=== PATIENT | female | born 1955 ===

== ENCOUNTER 2016-11-23 10:31 | Emergency (ER) | payer OTHER ==
[2016-11-23 10:44] VITALS: RESP 18; TEMP 97
--- NOTE | 2016-11-23 10:57 | ED PDOC ---
HPI: Hypertension/Hypotension Time Seen by Provider: 11/23/16 10:57 Chief Complaint (Nursing): High Blood Pressure Chief Complaint (Provider): high BP History Per: Patient Additional Complaint(s): Patient states she measured her blood pressure at home with an arm cuff and it was 178/92. She believes that she has a history of high blood pressure for several years but is not on medication. Patient states once in a while she will take her friend's enalapril. Upon arrival to ER patient denies chest pain, shortness of breath, dyspnea on exertion, headache, dizziness or vision changes. Past Medical History Reviewed: Historical Data, Nursing Documentation, Vital Signs Vital Signs: Last Vital Signs Temp 97 F L 11/23/16 10:41 Pulse 92 H 11/23/16 10:41 Resp 18 11/23/16 10:41 BP 178/92 H 11/23/16 10:41 Pulse Ox 96 11/23/16 10:41 - Medical History PMH: HTN (not on meds) - Surgical History Surgical History: Hernia Repair (hiatal), (x 1) - Family History Family History: States: No Known Family Hx - Social History Current smoker - smoking cessation education provided: No Alcohol: None Drugs: Denies - Home Medications Home Medications: Ambulatory Orders Medication Instructions Recorded MetFORMIN [glucoPHAGE] 500 mg PO BID #20 tab 11/23/16 - Allergies Allergies/Adverse Reactions: Allergies Allergy/AdvReac Type Severity Reaction Status Date / Time No Known Allergies Allergy Verified 11/23/16 10:41 Review of Systems ROS Statement: Except As Marked, All Systems Reviewed And Found Negative Constitutional: Positive for: Other (elevated BP at home). Negative for: Fever Cardiovascular: Negative for: Chest Pain, Palpitations Respiratory: Negative for: Cough Gastrointestinal: Negative for: Nausea, Vomiting Neurological: Negative for: Headache, Dizziness Physical Exam - Reviewed Nursing Documentation Reviewed: Yes Vital Signs Reviewed: Yes - Physical Exam Appears: Positive for: Well Skin: Negative for: Rash Eye Exam: Positive for: Normal appearance, EOMI, PERRL Cardiovascular/Chest: Positive for: Regular Rate, Rhythm Respiratory: Positive for: Normal Breath Sounds Extremity: Negative for: Pedal Edema Neurologic/Psych: Positive for: Alert, Oriented - Laboratory Results Result Diagrams: 11/23/16 11:18 11/23/16 11:18 - ECG Interpretation Of ECG: Normal sinus rhythm 69 bpm, no acute findings, reviewed by PA and ED attending O2 Sat by Pulse Oximetry: 96 Pulse Ox Interpretation: Normal Medical Decision Making Medical Decision Makin61 year old with high blood pressure Plan: CBC CMP Trop EKG BP in ED 146/80 1:50 pm: repeat BP is now 151/84 Patient aware of all diagnostic testing results, all questions answered. Hyperglycemia noted, rx metformin given. BP is stable. Patient was referred to clinic for follow up. Copies of labs provided. Disposition - Clinical Impression Clinical Impression: Hyperglycemia, Borderline high blood pressure - Patient ED Disposition Is Patient to be Admitted: No Counseled Patient/Family Regarding: Studies Performed, Diagnosis, Need For Followup, Rx Given - Disposition Referrals: [facility] [Outside] Disposition: Routine/Home Disposition Time: 13:56 Condition: STABLE Additional Instructions: Take rx meds as directed. Follow up with clinic as soon as possible. Prescriptions: MetFORMIN [glucoPHAGE] 500 mg PO BID #20 tab Instructions: Diabetic Hyperglycemia (ED), Hypertension (ED) Forms: [employer] (Namibian) Results - Lab Results Lab Results: 11/23/16 11/23/16 11:18 11:18 WBC 9.1 RBC 5.24 H Hgb 13.8 Hct 41.5 MCV 79.2 L MCH 26.4 L MCHC 33.3 RDW 13.4 Plt Count 211 MPV 10.7 Neut % (Auto) 57.9 Lymph % (Auto) 34.4 [place] % (Auto) 5.8 Eos % (Auto) 1.3 Baso % (Auto) 0.6 Neut # 5.3 Lymph # 3.1 [place] # 0.5 Eos # 0.1 Baso # 0.1 Sodium 141 Potassium 4.1 Chloride 103 Carbon Dioxide 21 L Anion Gap 21 H BUN 12 Creatinine 0.6 L Est GFR ( Amer) > 60 Est GFR (Non-Af Amer) > 60 Random Glucose 265 H Calcium 9.8 Total Bilirubin 0.7 AST 102 H ALT 83 H Alkaline Phosphatase 83 Troponin I < 0.0120 Total Protein 7.9 Albumin 4.4 Globulin 3.5 Albumin/Globulin Ratio 1.3
[2016-11-23 11:41] LABS: BASO # 0.1 K/uL (0.0-0.2); BASO % 0.6 % (0.0-2.0); EOS # 0.1 K/uL (0.0-0.7); EOS % 1.3 % (0.0-4.0); HEMATOCRIT 41.5 % (34.0-47.0); LYMPH # 3.1 K/uL (1.0-4.3); LYMPH % 34.4 % (20.0-40.0); MEAN CELL VOLUME 79.2 fl (81.0-99.0); MEAN CORPUSCULAR HEMOGLOBIN 26.4 pg (27.0-31.0); MEAN CORPUSCULAR HGB CONC 33.3 g/dL (33.0-37.0); MEAN PLATELET VOLUME 10.7 fl (7.2-11.7); MONO # 0.5 K/uL (0.0-0.8); MONO % 5.8 % (0.0-10.0); NEUT # 5.3 K/uL (1.8-7.0); NEUT % 57.9 % (50.0-75.0); RED CELL DISTRIBUTION WIDTH 13.4 % (11.5-14.5); WHITE BLOOD COUNT 9.1 K/uL (4.8-10.8)
[2016-11-23 12:49] LABS: ALB/GLOB RATIO 1.3 (1.0-2.1); ALKALINE PHOSPHATASE 83 U/L (38-126); ALT/SGPT 83 U/L (9-52); AST/SGOT 102 U/L (14-36); BILIRUBIN,TOTAL 0.7 mg/dl (0.2-1.3); BLOOD UREA NITROGEN 12 mg/dl (7-17); CALCIUM 9.8 mg/dL (8.4-10.2); CARBON DIOXIDE 21 mmol/L (22-30); CHLORIDE 103 mmol/L (98-107); GFR AFRICAN-AMERICAN > 60; GLUCOSE,RANDOM 265 mg/dL (65-105); POTASSIUM 4.1 MMOL/L (3.6-5.0); SODIUM 141 mmol/l (132-148); TOTAL PROTEIN 7.9 G/DL (6.3-8.2)
[2016-11-23 15:51] VITALS: BP 144/70; PULSE 78; O2SAT 99
--- NOTE | 2016-11-24 09:42 | CARD ---
APPROVED REPORT EKG Measurement Heart [id number] <Conclusion> Normal sinus rhythm Normal ECG
== END 2016-11-23 14:40 | disposition home or self-care (01) ==
LOC: H.ER 10:31
DX: I10 Essential (primary) hypertension (principal); R73.9 Hyperglycemia, unspecified

== ENCOUNTER 2017-03-26 10:24 | Emergency (ER) | payer SELFPAY ==
[2017-03-26 10:42] VITALS: BP 165/82; PULSE 83; RESP 20; TEMP 98.7; O2SAT 95; BMI 29.6
--- NOTE | 2017-03-26 14:01 | ED PDOC ---
Upper Extremity Pain/Injury Time Seen by Provider: 03/26/17 12:15 Chief Complaint (Nursing): Upper Extremity Problem/Injury Chief Complaint (Provider): Discolored nail History Per: Patient History/Exam Limitations: no limitations Onset/Duration Of Symptoms: Days (x2) Current Symptoms Are (Timing): Still Present Additional Complaint(s): Patient presents complaining of discoloration to the nail of right thumb for the past 2-3 days. Also notes nail is lifting up. Otherwise: (-) trauma/injury, (-) numbness, (-) fever. PMD: None Past Medical History Reviewed: Historical Data, Nursing Documentation, Vital Signs Vital Signs: Last Vital Signs Temp 98.7 F 03/26/17 10:41 Pulse 83 03/26/17 10:41 Resp 20 03/26/17 10:41 BP 165/82 H 03/26/17 10:41 Pulse Ox 95 03/26/17 10:41 - Medical History PMH: HTN (not on meds) - Surgical History Surgical History: Hernia Repair (hiatal), (x 1) - Family History Family History: States: Unknown Family Hx - Social History Current smoker - smoking cessation education provided: No Alcohol: None Drugs: Denies - Home Medications Home Medications: Ambulatory Orders Medication Instructions Recorded MetFORMIN [glucoPHAGE] 500 mg PO BID #20 tab 11/23/16 Clotrimazole 1% Cream [Lotrimin 1%] 30 applic EXT BID #1 tube 03/26/17 - Allergies Allergies/Adverse Reactions: Allergies Allergy/AdvReac Type Severity Reaction Status Date / Time No Known Allergies Allergy Verified 11/23/16 10:41 Review of Systems ROS Statement: Except As Marked, All Systems Reviewed And Found Negative Constitutional: Negative for: Fever Musculoskeletal: Positive for: Other (discolored nail, right thumb) Neurological: Negative for: Numbness (and tingling) Physical Exam - Reviewed Nursing Documentation Reviewed: Yes Vital Signs Reviewed: Yes - Physical Exam Comments: GENERAL APPEARANCE: Patient is awake, alert, oriented x 3, in no acute distress. SKIN: Warm, dry; (-) cyanosis. UPPER EXTREMITY: Yellow discoloration to nail of right thumb, nail is noted to be raised. CARDIOVASCULAR: (+) distal pulse. NEUROLOGIC: (+) distal sensation. - ECG O2 Sat by Pulse Oximetry: 95 (RA) Pulse Ox Interpretation: Normal Medical Decision Making Medical Decision Making: Time: 13:08 Plan: Based on history and exam, plan will be to discharge patient, instructed to f/u w/ the clinic. Patient notified of likely fungal infection to nail. Counseled regarding diagnosis and the need for follow up with the clinic. Scribe Attestation: Documented by Nereyda Tyson, acting as a scribe for Suzanne Garrison PA-C Provider Scribe Attestation: All medical record entries made by the Scribe were at my direction and personally dictated by me. I have reviewed the chart and agree that the record accurately reflects my personal performance of the history, physical exam, medical decision making, and the department course for this patient. I have also personally directed, reviewed, and agree with the discharge instructions and disposition. Disposition - Clinical Impression Clinical Impression: Fungal nail infection - Patient ED Disposition Is Patient to be Admitted: No Counseled Patient/Family Regarding: Diagnosis, Need For Followup, Rx Given - Disposition Referrals: [facility] [Outside] Disposition: Routine/Home Disposition Time: 13:10 Condition: STABLE Additional Instructions: Advised to follow up with clinic in 1-2 days without fail. Advised to take medication as prescribed. Return to the emergency room at any time for any new or worsening symptoms. Patient states she fully agrees with and understands discharge instructions. States that she agrees with the plan and disposition. Verbalized and repeated discharge instructions and plan. I have given the patient opportunity to ask any additional questions. Prescriptions: Clotrimazole 1% Cream [Lotrimin 1%] 30 applic EXT BID #1 tube Forms: [employer] (French) Print Language: BENGALI - POA Present On Arrival: None - PA / PLASTIC MIXER / Resident Statement MD/DO has reviewed & agrees with the documentation as recorded.
== END 2017-03-26 13:10 | disposition home or self-care (01) ==
LOC: H.ER 10:24
DX: B35.1 Tinea unguium (principal); I10 Essential (primary) hypertension; Z79.84 Long term (current) use of oral hypoglycemic drugs